=== PATIENT | female | born 1970 | race American Indian/Alaskan Native ===

== ENCOUNTER 2017-04-14 06:56 | Day surgery (SDC) | payer MEDICAID ==
[~2017-04-14 06:56] MED LIST: Lactated Ringers 1,000 ML IV SCH; Sodium Chloride 0.9% 10 ML Syringe FLUSH PRN
[2017-04-14] MEDS ORDERED: ceFAZolin 1 GM in Premix Bag 1 BAG IV ONE (07:00)
[2017-04-14] MEDS ORDERED: Lidocaine 1% 30 ML SDV ONE ×2 (07:11→13:34)
[2017-04-14] MEDS ORDERED: Bupivacaine 0.5% 10 ML SDV ONE ×2 (07:11→13:33)
[2017-04-14] MEDS ORDERED: Midazolam 1 MG/ML 2 ML SDV ONE (08:12)
[2017-04-14] MEDS ORDERED: Propofol 200 MG/20 ML SDV ONE (08:13)
[2017-04-14] MEDS ORDERED: fentaNYL 100 MCG/2 ML SDV ONE ×2 (08:13→08:16)
[2017-04-14] MEDS ORDERED: Ondansetron 4 MG/2 ML SDV ONE (08:19)
[2017-04-14] MEDS ORDERED: Midazolam 1 MG/ML 2 ML SDV IV ONE (08:19)
[2017-04-14] MEDS ORDERED: Morphine 4 MG/ML Syringe IV ONE (08:19)
[2017-04-14] MEDS ORDERED: fentaNYL 100 MCG/2 ML SDV IV ONE (08:19)
[2017-04-14] MEDS ORDERED: Ondansetron 4 MG/2 ML SDV IV ONE (08:19)
[2017-04-14] MEDS ORDERED: Propofol 200 MG/20 ML SDV IV ONE (08:19)
[2017-04-14] MEDS ORDERED: Lidocaine 1% 30 ML SDV INJECT ONE ×3 (08:40→15:51)
[2017-04-14] MEDS ORDERED: Bupivacaine 0.5% 10 ML SDV INJECT ONE ×4 (08:40→15:51)
--- NOTE | 2017-04-14 08:59 | PCM.PREANE ---
Preanesthetic Assessment - Anesthesia/Transfusion/Family Hx Anesthesia History: Prior Anesthesia Without Reaction Type of Anesthesia Reaction: Unknown Family History of Anesthesia Reaction: No Transfusion History: No Prior Transfusion(s) - Physical Assessment O2 Sat by Pulse Oximetry: 97 Respiratory Rate: 16 Vital Signs: Last Vital Signs Temp 35.9 C 04/14/17 07:10 Pulse 70 04/14/17 07:10 Resp 16 04/14/17 07:10 BP 136/80 04/14/17 07:10 Pulse Ox 97 04/14/17 07:10 Height: 1.7 m Weight: 95.708 kg ROM/Head Extension: Full Lungs: Clear to auscultation, Normal respiratory effort Cardiovascular: Regular Rate, Regular Rhythm - Lab Values: Laboratory Last Values Urine Opiates Screen Negative (NEGATIVE) 04/14/17 07:30 Ur Oxycodone Screen Negative (NEGATIVE) 04/14/17 07:30 Urine Methadone Screen Negative (NEGATIVE) 04/14/17 07:30 Ur Barbiturates Screen Negative (NEGATIVE) 04/14/17 07:30 U Tricyclic Antidepress Negative (NEGATIVE) 04/14/17 07:30 Ur Phencyclidine Scrn Negative (NEGATIVE) 04/14/17 07:30 Ur Amphetamine Screen Negative (NEGATIVE) 04/14/17 07:30 U Methamphetamines Scrn Positive (NEGATIVE) H 04/14/17 07:30 Urine MDMA Screen Negative (NEGATIVE) 04/14/17 07:30 U Benzodiazepines Scrn Negative (NEGATIVE) 04/14/17 07:30 Urine Cocaine Screen Negative (NEGATIVE) 04/14/17 07:30 U Marijuana (THC) Screen Positive (NEGATIVE) H 04/14/17 07:30 - Allergies Allergies/Adverse Reactions: Allergies Allergy/AdvReac Type Severity Reaction Status Date / Time latex Allergy Rash Verified 04/14/17 07:20 naproxen Allergy Abdominal Verified 04/14/17 07:20 Pain - Blood Blood Available: No Product(s) Available: None - Anesthesia Plan Pre-Op Medication Ordered: None Med Last Dose Date: 04/13/17 Med Last Dose Time: 18:00 - Acknowledgements Anesthesia Type Planned: General Anesthesia Pt an Appropriate Candidate for the Planned Anesthesia: Yes Alternatives and Risks of Anesthesia Discussed w Pt/Guardian: Yes Pt/Guardian Understands and Agrees with Anesthesia Plan: Yes PreAnesthesia Questionnaire HEENT History: Reports: None Cardiovascular History: Reports: None Respiratory History: Reports: None Gastrointestinal History: Reports: None, Hepatitis, Other (See Below) Other Gastrointestinal History: HEPATITIS C POSITIVE Genitourinary History: Reports: None 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: Musculoskeletal History: Reports: Arthritis, Back Pain, Chronic, Other (See Below) Other Musculoskeletal History: CHRONIC FOOT PAIN Neurological History: Reports: None Psychiatric History: Reports: Anxiety, Depression Endocrine/Metabolic History: Reports: Obesity/BMI 30+ Hematologic History: Reports: None Immunologic History: Reports: None Oncologic (Cancer) History: Reports: None Dermatologic History: Reports: Cellulitis - Infectious Disease History Infectious Disease History: Reports: Chicken Pox, Hepatitis C - Past Surgical History Head Surgeries/Procedures: Reports: None HEENT Surgical History: Reports: None Cardiovascular Surgical History: Reports: None Respiratory Surgical History: Reports: None GI Surgical History: Reports: None Female Surgical History: Reports: Section, Tubal Ligation Endocrine Surgical History: Reports: None Neurological Surgical History: Reports: None Musculoskeletal Surgical History: Reports: Other (See Below) Other Musculoskeletal Surgeries/Procedures:: LEFT FOOT SURGERY. RIGHT FOOT SURGERY Oncologic Surgical History: Reports: None Dermatological Surgical History: Reports: None - SUBSTANCE USE Smoking Status *Q: Current Some Day Smoker Tobacco Use Within Last Twelve Months: Cigarettes Second Hand Smoke Exposure: Yes Recreational Drug Type: Reports: Marijuana/Hashish - HOME MEDS Home Medications: Home Meds Albuterol [IJD: Ventolin HFA] 1 puff INH ASDIRECTED 04/13/17 [History] Benzonatate [Benzonatate] 1 cap PO ASDIRECTED PRN 04/13/17 [History] Cyclobenzaprine [Flexeril] 1 tab PO TID 04/13/17 [History] Gabapentin [Gabapentin] 1 tab PO TID PRN 04/13/17 [History] Sertraline HCl [Sertraline HCl] 1 tab PO DAILY 04/13/17 [History] busPIRone HCl [Buspirone HCl] 1 tab PO DAILY 04/13/17 [History] traZODone HCl [Trazodone HCl] 1 tab PO BEDTIME 04/13/17 [History] - CURRENT (IN HOUSE) MEDS Current Meds: Current Medications Lactated Ringer's (Ringers, Lactated) 1,000 mls @ 100 mls/hr IV ASDIRECTED MARISA Last Admin: 04/14/17 07:51 Dose: 100 mls/hr Sodium Chloride (Saline Flush) 10 ml FLUSH ASDIRECTED PRN PRN Reason: Keep Vein Open Sodium Chloride (Saline Flush) 10 ml FLUSH ASDIRECTED PRN PRN Reason: Keep Vein Open Discontinued Medications Bupivacaine HCl (Sensorcaine-Mpf 0.5%) Confirm Administered Dose 20 ml .ROUTE .STK-MED ONE Stop: 04/14/17 07:12 Fentanyl (Sublimaze) Confirm Administered Dose 200 mcg .ROUTE .STK-MED ONE Stop: 04/14/17 08:14 Fentanyl (Sublimaze) Confirm Administered Dose 200 mcg .ROUTE .STK-MED ONE Stop: 04/14/17 08:17 Cefazolin Sodium/Dextrose 1 gm (/ Premix) 50 mls @ 100 mls/hr IV ONETIME ONE Stop: 04/14/17 07:29 Lidocaine HCl (Xylocaine-Mpf 1%) Confirm Administered Dose 30 ml .ROUTE .STK- MED ONE Stop: 04/14/17 07:12 Midazolam HCl (Versed 1 Mg/Ml) Confirm Administered Dose 2 mg .ROUTE .STK-MED ONE Stop: 04/14/17 08:13 Ondansetron HCl (Zofran) Confirm Administered Dose 4 mg .ROUTE .STK-MED ONE Stop: 04/14/17 08:20 Propofol (Diprivan 20 Ml) Confirm Administered Dose 200 mg .ROUTE .STK-MED ONE Stop: 04/14/17 08:14
[2017-04-14] MEDS ORDERED: Morphine 4 MG/ML Syringe ONE (13:07)
[2017-04-14] MEDS ORDERED: Morphine 4 MG/ML Syringe IVPUSH ONE (13:18)
[2017-04-14] MEDS ORDERED: HYDROmorphone 1 MG/ML Syringe IVPUSH ONE (13:18)
[2017-04-14] MEDS ORDERED: Acetaminophen/oxyCODONE 325-5 MG Tab PO ONE (13:22)
--- NOTE | 2017-04-14 13:27 | PCM.OPNOTE ---
- General Post-Op/Procedure Note Date of Surgery/Procedure: 04/14/17 Operative Procedure(s): Right foot hardware removal with revisional lapidus fusion with bone allograft, 2nd and 3rd metatarsal sheila osteotomies, 2nd and 3rd PIPJ fusions with k wire, tailors bunionectomy Pre Op Diagnosis: RIght foot painful non union 1st met cuneiform with painful hardware, metatarsalgia 2 and 3, hammertoes 2 and 3, tailors bunion Post-Op Diagnosis: emilee Anesthesia Technique: General LMA Primary Surgeon: Gloria Ambrocio Anesthesia Provider: Amanda Wu EBL in mLs: 10 Complications: none Condition: Good Free Text/Narrative:: Pt tolerated procedure well and was transported to pacu with vss and vascular status intact to right foot as noted by immediate hyperemia to digits upon deflation of ankle tourniquet. jarvis lapidus plate with 3.5 non locking screws applied, 3.0 cannulated screw across, 2.0 cannulated screws x4, 0.062 inch k wires to digits. TT 206, let down at 90 mins, then up for 116. Well padded L&U splint applied.
[2017-04-14] MEDS ORDERED: Lidocaine 1% 10 ML MDV INJECT ONE (13:30)
[2017-04-14 15:06] VITALS: BP 139/93
--- NOTE | 2017-04-15 11:44 | OR ---
DATE: 04/14/2017 PREOPERATIVE DIAGNOSES: 1. Right foot nonunion of Lapidus fusion. 2. Painful hardware. 3. Second and third metatarsalgia. 4. Second and third painful hammertoe. 5. Painful Tailor's bunion, all on the right foot. POSTOPERATIVE DIAGNOSES: 1. Right foot nonunion of Lapidus fusion. 2. Painful hardware. 3. Second and third metatarsalgia. 4. Second and third painful hammertoe. 5. Painful Tailor's bunion. All on the right foot. PROCEDURE PERFORMED: 1. Right foot hardware removal. 2. Right foot revisional Lapidus procedure with bone allograft. 3. Second and third metatarsal Nimesh osteotomy shortening of the right foot. 4. Second and third proximal interphalangeal joint arthrodesis/hammertoe correction, right foot. 5. Tailor's bunionectomy of the right foot. ANESTHESIA: General LMA with preoperative local block of 20 mL of 1:1 mixture 1% lidocaine plain and 0.5% Marcaine plain. TOURNIQUET TIME: 90 minutes, then was released and then was put back at 116 for a total of 206 minute. ESTIMATED BLOOD LOSS: Minimal. SPECIMEN: None. COMPLICATIONS: None. INDICATIONS: Pamela is a 46-year-old female, who presents for bilateral foot pain. She has a history of multiple different surgeries to her feet. She states in 2010, she had a bunionectomy performed on her right foot, this did not heal, and she also had to have another surgery performed. She reports now she is still having pain at the surgical site and it also very painful. Calluses under the ball of her feet, this are worse on her right foot. She also reports a very painful lump on this foot and thinks the screw is backing out. This area is painful whenever there is pressure, also pain to the ball of the foot with walking or standing. Pain is rated 8/10 at worst. She also has painful hammertoes that to rub on her shoes, this is at the second and third toes. She is having pain on the outside of her foot where there is also a painful bunion. She has tried wider shoes, and activity modifications with no relief. Three views of the right foot reveal attempting fusion of the first metatarsal cuneiform joint which appears to be hypertrophic, nonunion at this point, there is a lucency at the fusion site area, there are 4 screws with a claw plate intact to the fusion site with proximal screw head at the dorsal medial cuneiform, it does appear that one of the screws has broken. She does have hammertoe deformities of digits 2 and 3. Her first metatarsal is shortened. She does have a Tailor's bunion present with intermetatarsal angle of 13 degrees. The patient voiced good understanding of proposed procedure and possible complications, elects to have surgery at this time. We did discuss putting a graft from a cadaver into this area and she agrees and understands. DESCRIPTION OF PROCEDURE: The patient was taken to the operating room, lying in supine position. After adequate anesthesia induction as described above, the right foot was prepped and draped in the usual sterile fashion. A pneumatic ankle tourniquet was inflated to 225 mmHg. Attention was then directed to the dorsal aspect of the medial mid foot at the first metatarsal cuneiform joint fusion site where an approximately 5 cm linear incision was made. Sharp and blunt dissection was performed down to the level of the hardware. One of the screws was backing out and loose. I removed all 4 [employer] screws and also the claw plate. This was completely removed except for 1 screw which had broken off, that was completely buried in the bone and was left intact. Attention was then directed to the first metatarsal cuneiform joint where a nonunion was present. There was fibrous tissue in the nonunion area and this was all debrided out. The bone was also debrided down to good healthy bleeding bone using a curette and also a bur. A K-wire was used to fenestrate the area to good bleeding bone. A 10 mm allograft wedge was then placed at the fusion site and this was noted to be stable. The fluoroscopy was used to ensure that this was in a correct position with the first metatarsal also incorrect position. Temporary fixation was placed and a 3.0 cannulated Shilpa screw was then inserted across the first metatarsal through the graft and into the medial cuneiform and compression was obtained. A Boykins Lapidus plate was then applied to the fusion site to protect the graft, and five 3.5 screws were placed at the plate. This was all noted to be very stable with forces applied. Fluoroscopy was then again used to ensure proper placement of the plate and screws. Attention was then directed to the second and third metatarsal head area where a curvilinear incision was made overlying the second and third digits down to the metatarsophalangeal joints. Sharp and blunt dissection was made down to the level of the second and third metatarsophalangeal joints and the head of the second and third metatarsals were visualized. A sagittal saw was then used to make an osteotomy directed distal dorsal to proximal plantar starting at the level just proximal to the articular cartilage of the second and third metatarsal head and just exiting distal to the neck in a way so that it would not significantly plantar flex when it is shortening. A K-wire from the screw set was used for temporary fixation of the osteotomy site. Fluoroscopy was used to confirm the parabola of the metatarsal head and this was maintained, and the metatarsal heads were in good alignment. The osteotomy sites were then fixated with a Boykins 2.0 cannulated screw at each metatarsal head. Temporary fixation was removed and fluoroscopy was then again used to verify proper positioning of the fixation across the osteotomy site in length of the screws. Attention was then directed to the second and third proximal interphalangeal joint. A blade was used to make a tenotomy capsulotomy at this area and the head of the proximal phalanx was exposed. A sagittal saw was then used to remove the head of the proximal phalanx and the base of the middle phalanx. A K- wire was then retrograded through the top of the toe and then back down across the fusion site. Good compression was noted at these sites with the toes in rectus alignment. Fluoroscopy was used to verify proper positioning of the screws and compression at the fusion sites. Attention was then directed to the fifth metatarsophalangeal joint where approximately 4 cm incision was made over the fifth metatarsal. Sharp and blunt dissection was performed down to the joint capsule. Linear capsulotomy was made and the capsule was reflected to expose the distal fifth metatarsal. A chevron-type distal osteotomy was performed and the capital fragment was transitioned approximately 4 mm. Temporary fixation was applied and 2 Boykins 2.0 cannulated screws were placed across the osteotomy site. Fluoroscopy was then again used to verify proper positioning of the metatarsal as well as the fixation. The temporary fixation was removed and the osteotomy site was noted to be stable with forces applied. All areas were then irrigated with copious amounts of sterile saline. Deep closure was completed with 3-0 Vicryl, and skin closure was completed with 4-0 nylon. The area was dressed with Xeroform to the incision site, fluffs, Webril, and a well-padded L and U splint with the foot in neutral position. The patient was instructed absolutely no weightbearing. She tolerated the procedure well and was transitioned back to the recovery room with vital signs stable and vascular status intact to the right foot and was noted to have immediate hyperemia to all digits upon deflation of ankle tourniquet. The tourniquet was up for 90 minutes, let down for approximately 20 minutes, and up again for 116. The patient was discharged home once she met hospital discharge requirements. [facility] /[id number]
== END 2017-04-14 15:35 | disposition home or self-care (01) ==
LOC: DL.SDS 06:56
PROVIDERS: ATTEND Podiatrist
DX: M20.41 Other hammer toe(s) (acquired), right foot (principal); M77.41 Metatarsalgia, right foot; M96.0 Pseudarthrosis after fusion or arthrodesis; M21.621 Bunionette of right foot; T84.84XA Pain due to internal orthopedic prosthetic devices, implants and grafts, initial encounter; Z88.8 Allergy status to other drugs, medicaments and biological substances; Z91.040 Latex allergy status; F32.9 Major depressive disorder, single episode, unspecified; E66.9 Obesity, unspecified; Z68.30 Body mass index [BMI] 30.0-30.9, adult; Z98.890 Other specified postprocedural states; Z98.51 Tubal ligation status; F17.210 Nicotine dependence, cigarettes, uncomplicated; Z79.899 Other long term (current) drug therapy; F41.9 Anxiety disorder, unspecified
CPT/HCPCS: 20680; 28285; 28297; 28308; 80305; J0690; J1170; J2270; J7120; A9270-GY; C1713; C1762; J2250; J2405; J2704; J3010

== ENCOUNTER 2019-01-11 07:49 | Day surgery (SDC) | payer MEDICAID ==
[2019-01-11] MEDS ORDERED: Midazolam 1 MG/ML 2 ML SDV IV ONE (07:50)
[2019-01-11] MEDS ORDERED: Bupivacaine 0.5% 30 ML SDV INJECT ONE ×4 (07:50→11:50)
[2019-01-11] MEDS ORDERED: fentaNYL 100 MCG/2 ML SDV IV ONE (07:50)
[2019-01-11] MEDS ORDERED: PROPOFOL IV ONE (07:50)
[2019-01-11] MEDS ORDERED: Ondansetron 4 MG/2 ML SDV IV ONE (07:50)
[2019-01-11] MEDS ORDERED: Lidocaine 1% 30 ML SDV INJECT ONE ×4 (07:50→11:50)
[2019-01-11] MEDS ORDERED: Sodium Chloride 0.9% 10 ML Syringe FLUSH PRN ×2 (08:00)
[2019-01-11] MEDS ORDERED: Lactated Ringers 1,000 ML IV SCH (08:00)
[2019-01-11] MEDS ORDERED: ceFAZolin 1 GM in Premix Bag 1 BAG IV ONE (08:00)
[2019-01-11] MEDS ORDERED: Lidocaine 1% 30 ML SDV ONE (09:04)
[2019-01-11] MEDS ORDERED: Bupivacaine 0.5% 30 ML SDV ONE (09:04)
[2019-01-11] MEDS ORDERED: ceFAZolin 2 GM in Premix Bag 1 BAG IV ONE (09:45)
[2019-01-11] MEDS ORDERED: Acetaminophen/oxyCODONE 325-5 MG Tab PO PRN (12:27)
--- NOTE | 2019-01-11 12:31 | PCM.OPNOTE ---
- General Post-Op/Procedure Note Date of Surgery/Procedure: 01/11/19 Operative Procedure(s): right foot painful hardware removal, 2nd metatarsal condylectomy, 4th digit hammertoe correction PIPJ arthrodesis with smart toe implant Pre Op Diagnosis: right foot painful hardware, 2nd metatarsalgia, 4th hammertoe Post-Op Diagnosis: emilee Anesthesia Technique: Local, MAC Primary Surgeon: Gloria Ambrocio Anesthesia Provider: Kirill Hayward EBL in mLs: 10 Complications: none Condition: Good Free Text/Narrative:: Pt tolerated procedure well and was transported to recovery with vascular status intact to right foot. Well padded compression dressing applied. size 15 smart toe placed at 4th digit.
[2019-01-11 14:05] VITALS: BP 112/61
--- NOTE | 2019-01-12 10:25 | OR ---
DATE: 01/11/2019 PREOPERATIVE DIAGNOSES: 1. Right foot painful hardware. 2. Right foot metatarsalgia with callus formation, second and fourth metatarsals. 3. Right foot fourth digit hammertoe. POSTOPERATIVE DIAGNOSES: 1. Right foot painful hardware. 2. Right foot metatarsalgia with callus formation, second and fourth metatarsals. 3. Right foot fourth digit hammertoe. PROCEDURES PERFORMED: 1. Right foot hardware removal. 2. Right foot second and fourth metatarsal condylectomy. 3. Right foot fourth digit hammertoe interphalangeal joint arthrodesis. ANESTHESIA: Local MAC with preoperative local block of 10 mL 1:1 mixture of 1% lidocaine plain and 0.5% Marcaine plain. TOURNIQUET TIME: Pneumatic ankle tourniquet, 100 minutes. ESTIMATED BLOOD LOSS: Minimal. SPECIMEN: None. COMPLICATIONS: None. INDICATIONS: Pamela is a 48-year-old female who presents for right foot pain. She gets very large calluses to the bottom of her feet which usually return for every couple of months. She did have surgery on the right foot, actually few different surgeries initially for a bunion, and then we also had to fix a nonunion and did metatarsal osteotomies and hammertoe corrections at that time. Now, she states she is having a lot of pain at her fourth toe which is curling underneath her third toe and is longer. She gets it caught on things and stubs it a lot. She would like to have a hammertoe procedure done on that toe as well. She is also having pain and swelling at her fusion site from before, and we had discussed removing her hardware in the past as it is broken and prominent in that area. She is ready for that now. We have tried a bone stimulator to that area, which she states did help but not with the prominent hardware area. She also has very painful calluses underneath the ball of the foot and would like those surgically fixed as well. X-rays reveal osteotomy sites of the second and third metatarsals and fifth metatarsal well healed; metatarsal cuneiform joint has broken screws at the plate and lifting of those screws, a significant amount with the plate. There was 1 screw intact through the joint. The CT scan performed in August reveals not a complete union at the first metatarsal cuneiform joint, looks like there could be some partial reunion. The patient voiced good understanding of the proposed procedure and possible complications and elects to have surgery at this time. She does not want any of the hardware that is not painful taken out, so I will plan on leaving the third metatarsal and fifth metatarsal as well as the interfragmentary screw at the first metatarsal cuneiform as those are not painful. I also tested her again for equinus, and she really does not have any. She has been working on stretching, and I do not think that she needs a gastroc recession today. DESCRIPTION OF PROCEDURE: The patient was taken to the operating room lying in supine position. After adequate anesthesia induction as described above, the right foot was prepped and draped in the usual sterile fashion. A pneumatic ankle tourniquet was inflated to 225 mmHg. Attention was then directed to the right foot, where an approximately 6 cm linear incision was made overlying the first metatarsal cuneiform area at the area of the prominent hardware. Sharp and blunt dissection was performed down to the level of the hardware being careful to retract all neurovascular structures. There was a significant amount of scar tissue to this area which was debrided. The plate and screws were very loose and prominent in this area, and they were all removed. A total of 5 screws and the plate were removed. Her interfragmentary screw was noted to be buried within the bone, so this was not removed. The fusion site was evaluated, and there was some bone fusion across this site. It was stable with motion. The area was then irrigated with copious amounts of sterile saline. Deep closure was completed with 0 Vicryl, and skin closure was completed with 4-0 nylon. Attention was then directed to the second metatarsophalangeal joint, where an approximately 4 cm curvilinear incision was made overlying the joint. Sharp and blunt dissection was made down to the level of the joint. A linear capsulotomy was made, and the capsule was reflected to expose the second metatarsal head. The screw was removed from that area. An osteotome was used to make a plantar condylectomy as there was very prominent condyle plantarly. The area was smoothed with a bone rasp. The foot was inspected, and there was not noted to be any prominence in this area. The second MTPJ had good fluid range of motion when tested. The area was irrigated with copious amounts of sterile saline. Deep closure was completed with 3-0 Vicryl, and skin closure was completed with 4-0 nylon. There was not noted to be any type of callus or pain underneath the third metatarsal head, so I did not do anything to that area. Attention was then directed to the fourth digit, where an approximately 5 cm curvilinear incision was made overlying the interphalangeal joint as well as the metatarsophalangeal joint. Sharp and blunt dissection was performed down to the level of the joints. A linear capsulotomy tenotomy was made at the interphalangeal joint of the fourth toe. The tissue was reflected to expose the head of the proximal phalanx. The proximal phalanx was then resected with a sagittal saw in order to shorten the toe and do the hammertoe correction. A rongeur was used to remove the cartilage from the base of the distal phalanx. A Smart Toe implant from [employer] was then placed at the fusion site, and the fourth toe was noted to be in a straight rectus alignment. Attention was then directed to the MTPJ, where a linear capsulotomy was made, and the capsule was reflected to expose the fourth metatarsophalangeal joint. There was noted to be a prominent condyle laterally, and so this was shaved down with a bone rasp. Upon inspection, there was not noted to be any prominent areas any longer to the plantar fourth metatarsal. There was good range of motion with fourth MTPJ motion. The area was irrigated with copious amounts of sterile saline. Deep closure was completed with 3-0 Vicryl, and skin closure was completed with 4-0 nylon. Fluoroscopy was used throughout the procedure to verify adequate placement of the Smart Toe as well as good alignment of that toe. I also took an axial view of the metatarsal heads to look at the plantar alignment, and they looked to be in a good straight alignment with no prominent areas. The area was then dressed with Xeroform to the incision site, fluffs, Webril, and Gordo wrap. She was placed nonweightbearing in the Cam boot. She tolerated anesthesia and the procedure well and was transported to recovery with vascular status intact to the right foot as noted by immediate hyperemia to all digits upon deflation of the ankle tourniquet. She was then discharged home when she met hospital discharge requirements. [facility] /[id number]
== END 2019-01-11 14:20 | disposition home or self-care (01) ==
LOC: DL.SDS 07:49
PROVIDERS: ATTEND Podiatrist
DX: T84.84XA Pain due to internal orthopedic prosthetic devices, implants and grafts, initial encounter (principal); M20.41 Other hammer toe(s) (acquired), right foot; M77.41 Metatarsalgia, right foot; M25.774 Osteophyte, right foot; F17.210 Nicotine dependence, cigarettes, uncomplicated; F41.9 Anxiety disorder, unspecified; Z91.040 Latex allergy status; Z88.6 Allergy status to analgesic agent
CPT/HCPCS: 20680; 28285; 28288; A9270; J0690; J2001; J2250; J2405; J2704; J3010; J3490; J7120; 76000

== ENCOUNTER 2019-07-07 07:49 | Emergency (ER) | payer MEDICAID ==
[2019-07-07 08:01] VITALS: BP 129/90
--- NOTE | 2019-07-07 08:17 | EDM.PDOC ---
ED HPI GENERAL MEDICAL PROBLEM - General Chief Complaint: Skin Complaint Stated Complaint: PAIN RIGHT BREAST Time Seen by Provider: 07/07/19 08:10 Source of Information: Reports: Patient History Limitations: Reports: No Limitations - History of Present Illness INITIAL COMMENTS - FREE TEXT/NARRATIVE: This 48 yo female patient reports to the ED with right breast pain. The patient reports she started noticing increased swelling, redness and pain in her right breast 3 days ago, but her symptoms have gotten progressively worse. 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 The patient reports she does have a history of MRSA and Hep C. Onset Date: 07/04/19 Duration: Constant, Getting Worse Location: Reports: Chest (Right breast) Quality: Reports: Ache, Throbbing Severity: Severe Improves with: Reports: None Worsens with: Reports: None Context: Reports: Other Associated Symptoms: Reports: Nausea/Vomiting Treatments SLIP MIXER: Reports: Home Treatments (warm pack) Right Breast Pain Score (Numeric/FACES): 8 - Related Data Allergies Allergy/AdvReac Type Severity Reaction Status Date / Time latex Allergy Rash Verified 07/07/19 08:00 naproxen Allergy Abdominal Verified 07/07/19 08:00 Pain Home Meds: Home Meds Cyclobenzaprine [Flexeril] 10 mg PO TID 04/13/17 [History] Sertraline HCl 100 mg PO DAILY 04/13/17 [History] Acetaminophen [Tylenol Extra Strength] 1,000 mg PO Q6H 01/10/19 [History] Albuterol [Ventolin HFA] 2 puff INH Q6H 01/10/19 [History] Celecoxib [CeleBREX] 100 mg PO BID 01/10/19 [History] Diclofenac Sodium [Voltaren 1% Gel] 1 squirt TOP .PRN 01/10/19 [History] Fluticasone Propionate [Flonase] 2 sprays INH DAILY 01/10/19 [History] oxyCODONE HCl/Acetaminophen [Percocet 5-325 mg Tablet] 1 tab PO ASDIRECTED 01/10 [History] Past Medical History HEENT History: Reports: None Cardiovascular History: Reports: None Respiratory History: Reports: Bronchitis, Recurrent, SOB Gastrointestinal History: Reports: Hepatitis, Other (See Below) Other Gastrointestinal History: HEPATITIS C POSITIVE Genitourinary History: Reports: None C.O.D. BILLER History: Reports: Musculoskeletal History: Reports: Arthritis, Back Pain, Chronic, Fibromyalgia, Other (See Below) Other Musculoskeletal History: CHRONIC FOOT PAIN Neurological History: Reports: None Psychiatric History: Reports: Anxiety, Depression Endocrine/Metabolic History: Reports: Obesity/BMI 30+ Hematologic History: Reports: None Immunologic History: Reports: None Other Immunologic History: Hepatitis C Oncologic (Cancer) History: Reports: None Dermatologic History: Reports: None - Infectious Disease History Infectious Disease History: Reports: Chicken Pox, Hepatitis C - Past Surgical History Head Surgeries/Procedures: Reports: None HEENT Surgical History: Reports: None Cardiovascular Surgical History: Reports: None Respiratory Surgical History: Reports: None GI Surgical History: Reports: None Female Surgical History: Reports: Section, Tubal Ligation Endocrine Surgical History: Reports: None Neurological Surgical History: Reports: None Musculoskeletal Surgical History: Reports: Other (See Below) Other Musculoskeletal Surgeries/Procedures:: LEFT FOOT SURGERY. RIGHT FOOT SURGERY Oncologic Surgical History: Reports: None Dermatological Surgical History: Reports: None Social & Family History - Tobacco Use Smoking Status *Q: Current Every Day Smoker Years of Tobacco use: 30 Packs/Tins Daily: 0.8 - Caffeine Use Caffeine Use: Reports: Soda Other Caffeine Use: DRINKS AT LEAST A 3 cans DAILY - Recreational Drug Use Recreational Drug Use: Yes Recreational Drug Type: Reports: Methamphetamine Recreational Drug Use Frequency: Daily ED ROS GENERAL - Review of Systems Review Of Systems: ROS reveals no pertinent complaints other than HPI. ED EXAM, SKIN/RASH Exam: See Below Exam Limited By: No Limitations General Appearance: Alert, WD/WN, Moderate Distress Eye Exam: Bilateral Eye: EOMI, Normal Inspection, PERRL Ears: Normal External Exam, Normal Canal, Hearing Grossly Normal, Normal TMs Nose: Normal Inspection, Normal Mucosa, No Blood Throat/Mouth: Normal Inspection, Normal Lips, Normal Teeth, Normal Gums, Normal Oropharynx, Normal Voice, No Airway Compromise Head: Atraumatic, Normocephalic Neck: Normal Inspection, Supple, Non-Tender, Full Range of Motion Respiratory/Chest: No Respiratory Distress, Lungs Clear, Normal Breath Sounds, No Accessory Muscle Use, Chest Non-Tender Cardiovascular: Normal Peripheral Pulses, Regular Rate, Rhythm, No Edema, No Gallop, No JVD, No Murmur, No Rub GI/Abdominal: Normal Bowel Sounds, Soft, Non-Tender, No Organomegaly, No Distention, No Abnormal Bruit, No Mass (Female) Exam: Deferred Rectal (Female) Exam: Deferred Back Exam: Normal Inspection, Full Range of Motion, NT Extremities: Normal Inspection, Normal Range of Motion, Non-Tender, No Pedal Edema, Normal Capillary Refill Neurological: Alert, Oriented, CN II-XII Intact, Normal Cognition, Normal Gait, Normal Reflexes, No Motor/Sensory Deficits Psychiatric: Normal Affect, Normal Mood Skin: Erythema (right breast), Increased Warmth Location, Skin: Chest (right breast) Characteristics: Erythematous Associated features: Warmth, Tenderness, Swelling, Induration Lymphatic: No Adenopathy ED SKIN PROCEDURES - I&D Site: right breast Skin Prep: Providone-Iodine (Betadine), Isopropyl Alcohol (Alcohol) Local Anesthesia: Lidocaine: 1% with EPI Local Anesthetic Volume: 4cc Area Incised With: 15 Blade Drainage: Purulent, Bloody, Moderate Amount Probed to Break Up Loculations: Yes Packed With: 1/4 in. Iodoform Sterile Dressinx4(s) Complications: No Course - Vital Signs Last Recorded V/S: Last Vital Signs Temp 36.8 C 07/07/19 07:57 Pulse 86 07/07/19 07:57 Resp 20 07/07/19 07:57 BP 129/90 07/07/19 07:57 Pulse Ox 98 07/07/19 07:57 - Orders/Labs/Meds Orders: Active Orders 24 hr Category Date Time Status Chest wo Cont [CT] Urgent Exams 07/07/19 08:06 Taken CULTURE BLOOD [BC] Stat Lab 07/07/19 08:02 Received CULTURE BLOOD [BC] Stat Lab 07/07/19 08:10 Received CULTURE WOUND [RM] Stat Lab 07/07/19 09:45 Received Blood Culture x2 Reflex Set [OM.PC] Stat Oth 07/07/19 07:58 Ordered Labs: Laboratory Tests 07/07/19 07/07/19 07/07/19 Range/Units 08:02 08:02 08:02 WBC 10.1 H (5.0-10.0) 10^3/uL RBC 4.59 (4.2-5.4) 10^6/uL Hgb 12.8 (12.0-16.0) g/dL Hct 40.5 (37.0-47.0) % MCV 88.2 (80-100) fL MCH 27.9 (27.0-34.0) pg MCHC 31.6 L (33.0-35.0) g/dL Plt Count 282 (150-450) 10^3/uL Neut % (Auto) 69.7 (42.2-75.2) % Lymph % (Auto) 17.6 L (20.5-50.1) % Stewart % (Auto) 9.6 H (2-8) % Eos % (Auto) 2.9 (1.0-3.0) % Baso % (Auto) 0.2 (0.0-1.0) % Sodium 137 (135-145) mmol/L Potassium 4.0 (3.6-5.0) mmol/L Chloride 105 (101-111) mmol/L Carbon Dioxide 23.0 (21.0-31.0) mmol/L Anion Gap 13.0 BUN 11 (7-18) mg/dL Creatinine 0.5 L (0.6-1.3) mg/dL Est Cr Clr Drug Dosing 130.90 mL/min Estimated GFR (MDRD) > 60 BUN/Creatinine Ratio 22.00 Glucose 104 (74-105) mg/dL Lactic Acid 0.9 (0.5-2.2) mmol/L Calcium 8.6 (8.4-10.2) mg/dl Total Bilirubin 0.4 (0.2-1.0) mg/dL AST 36 (10-42) IU/L ALT 42 (10-60) IU/L Alkaline Phosphatase 97 (42-121) IU/L Total Protein 7.7 (6.7-8.2) g/dl Albumin 3.4 (3.2-5.5) g/dl Globulin 4.3 Albumin/Globulin Ratio 0.79 Meds: Medications Discontinued Medications Generic Name Dose Route Start Last Admin Trade Name Freq PRN Reason Stop Dose Admin Vancomycin HCl 1.75 gm/ Sodium 500 mls @ 334 mls/hr 07/07/19 08:46 07/07/19 09:10 Chloride IV 07/07/19 10:15 334 mls/hr ONETIME ONE Administration Lidocaine/Epinephrine 20 ml 07/07/19 08:42 07/07/19 09:02 Xylocaine 1% With Epinephrine 1:100,000 INJECT 07/07/19 08:43 20 ml ONETIME ONE Administration Departure - Departure Time of Disposition: 10:31 Disposition: DC/Tfer to Acute Hospital 02 Condition: Serious Clinical Impression: Abscess of right breast, Cellulitis of right breast - Discharge Information *PRESCRIPTION DRUG MONITORING PROGRAM REVIEWED*: Yes *COPY OF PRESCRIPTION DRUG MONITORING REPORT IN PATIENT YON: Yes Forms: Interfacility Transfer EMTALA Care Plan Goals: Discussed the patient's history, examination, lab, CT and treatments with Dr. Hobson (Hospitalist with [facility] in [place]). Dr. Hobson accepted the patient for continued evaluation and management. The patient will be transported by [facility]. - My Orders Last 24 Hours: My Active Orders 07/07/19 07:58 Blood Culture x2 Reflex Set [OM.PC] Stat 07/07/19 08:02 CULTURE BLOOD [BC] Stat 07/07/19 08:06 Chest wo Cont [CT] Urgent 07/07/19 08:10 CULTURE BLOOD [BC] Stat 07/07/19 09:45 CULTURE WOUND [RM] Stat - Assessment/Plan Last 24 Hours: My Active Orders 07/07/19 07:58 Blood Culture x2 Reflex Set [OM.PC] Stat 07/07/19 08:02 CULTURE BLOOD [BC] Stat 07/07/19 08:06 Chest wo Cont [CT] Urgent 07/07/19 08:10 CULTURE BLOOD [BC] Stat 07/07/19 09:45 CULTURE WOUND [RM] Stat
[2019-07-07 08:29] LABS: CHLORIDE,CL 105 mmol/L (101-111); SODIUM,NA 137 mmol/L (135-145)
[2019-07-07] MEDS ORDERED: Lidocaine 1% with EPINEPHrine 1:100,000 20 ML MDV INJECT ONE (08:42)
[2019-07-07] MEDS ORDERED: Vancomycin 1.75 GM in Sodium Chloride 0.9% 500 ML IV ONE (08:46)
== END 2019-07-07 11:18 ==
LOC: DL.ED 07:49
DX: N61.1 Abscess of the breast and nipple (principal); E66.9 Obesity, unspecified; F41.9 Anxiety disorder, unspecified; F32.9 Major depressive disorder, single episode, unspecified; F17.210 Nicotine dependence, cigarettes, uncomplicated; Z91.040 Latex allergy status; Z88.8 Allergy status to other drugs, medicaments and biological substances; Z79.899 Other long term (current) drug therapy
CPT/HCPCS: 10061; 36415; 71250; 80053; 83605; 85025; 87040; 87070; 87077; 87186; 96365; 96366; 99285; J3370; J7040